=== PATIENT | male | born 1945 | race Caucasian/White ===

== ENCOUNTER 2019-05-03 08:55 | Outpatient (CLI) | payer MEDICARE ==
--- NOTE | 2019-05-03 09:45 | CT ---
Head CT without contrast: 05/03/2019 COMPARISON: 07/08/2011 HISTORY: Reevaluate head bleed TECHNIQUE: Axial CT imaging obtained at 4.5 mm intervals from vertex through skull base without contr ast FINDINGS: No recent comparison imaging is available and thus the location of prior intracranial hemor rhage is unknown. The imaged paranasal sinuses and mastoid air cells appear unremarkable. No displaced calvarial fracture is seen. No discrete intracranial hemorrhage, midline shift, or mass effect. IMPRESSION: No intracranial hemorrhage appreciated on this examination.
== END 2019-05-03 08:56 | disposition home or self-care (01) ==
LOC: TBSIIMAG 08:55
PROVIDERS: ATTEND Neurological Surgery
DX: I62.00 Nontraumatic subdural hemorrhage, unspecified (principal)
CPT/HCPCS: 70450

== ENCOUNTER 2019-10-11 10:57 | Outpatient (CLI) | payer MEDICARE ==
--- NOTE | 2019-10-11 14:41 | PET ---
PET CT SKULL TO MID THIGH: History: Solitary pulmonary nodule. Comparison: No images are available for review. There is a report from an outside facility August 21, 2019 discus sing a pulmonary nodule in the left upper lobe. Findings: PET CT from the calvarium through the mid thighs was performed after the intravenous administration o f 11.6 mCi F18 FDG. In the left lower lobe is a lobular nodule which in the transverse oblique plane measured on the rafaela nal images measures up to 3 cm in size. This abnormal nodule has SUV max of 1.68. In the axial plane it appears as almost 2 separate nodules with a central linear confluence and it is unclear whic h dimension was measured on the prior exam given the lack of comparison images. No other pulmonary nodule is appreciated. No other abnormal focal area of radiotracer uptake within t he chest, abdomen, or pelvis. Degenerative changes lower lumbar spine with laminectomy change. No FDG avid adenopathy. No abnormal solid organ uptake. Multiple midline sternotomy wires. Moderate vascular plaque. Moderate diverticular disease in the sigmoid colon without active current i nflammation. Impression: 1. Lobular pulmonary nodule within the left upper lobe with low-grade FDG avidity. This nodule is bennie picious for malignancy given the CT features and history of growth even without significant FDG avidity, and may be amenable to percutaneous biopsy with the patient's arms above their head as the p atient's arms are at their sides on this PET CT examination. 2. No evidence for distant metastatic disease. Transcribed Date/Time: 10/11/2019 3:00 PM
== END 2019-10-11 10:58 | disposition home or self-care (01) ==
LOC: PET 10:57
DX: R91.1 Solitary pulmonary nodule (principal)
CPT/HCPCS: 78815; A9552

== ENCOUNTER 2020-02-07 09:45 | Outpatient (CLI) | payer MEDICARE ==
--- NOTE | 2020-02-07 18:51 | PET ---
PET CT: 02/07/20 HISTORY: 74-year-old male with lung cancer. TECHNIQUE: PET scan with CT attenuation correction was performed from the base of the brain to the proximal thig hs following intravenous administration of 10.5 millicuries 15-fluorodeoxyglucose in the left antecub ital fossa. COMPARISON: PET CT dated 10/11/19. CORRELATION: None. FINDINGS: There are new hypermetabolic lymph nodes in the mediastinum with an SUV of 6.1 in the prevascular spa ce and 4.6 in the AP window (between the left pulmonary artery and descending aorta). Focally increas ed FDG localization is seen in the left hilum with an SUV of 4.4. There is hypermetabolic activity in a soft tissue nodule anterior to the trachea at the thoracic inle t/lower anterior neck with an SUV of 3.1. There is a focus of increased FDG localization in the anterior aspect of the left third rib with an S UV of 4.2. No hypermetabolic pulmonary nodules, liver, or adrenal lesions are seen. There is physiologic activity in the GI and tracts and the visualized portions of the brain. The CT scan used for attenuation correction demonstrates no evidence of pleural effusions or ascites. There is colonic diverticulosis. Left shoulder arthroplasty is present. IMPRESSION: Findings are consistent with metastatic disease in the lower cervical, mediastinal, left hilar lymph nodes and the left anterior third rib. POS: SUZY
== END 2020-02-07 09:46 | disposition home or self-care (01) ==
LOC: PET 09:45
DX: R93.89 Abnormal findings on diagnostic imaging of other specified body structures (principal)
CPT/HCPCS: 78815; A9552